=== PATIENT | female | born 1970 | race Two or more races ===

== ENCOUNTER 2021-11-01 10:35 | Emergency (ER) | payer SELFPAY ==
[~2021-11-01] VITALS: Ht 154.9 cm; Wt 68.0 kg
[2021-11-01 11:08] VITALS: BP 153/81
== END 2021-11-01 12:13 | disposition home or self-care (01) ==
LOC: ER 10:35
DX: S46.911A Strain of unspecified muscle, fascia and tendon at shoulder and upper arm level, right arm, initial encounter (principal); W01.0XXA Fall on same level from slipping, tripping and stumbling without subsequent striking against object, initial encounter; Y93.89 Activity, other specified; Y92.89 Other specified places as the place of occurrence of the external cause; Y99.8 Other external cause status
CPT/HCPCS: 73030